=== PATIENT | female | born 1980 | race Asian ===

== ENCOUNTER 2019-01-16 13:46 | Outpatient (CLI) | payer OTHER ==
[2019-01-16 14:13] LABS: PLATELET COUNT 343 K/uL (152-353)
[2019-01-16 14:36] LABS: POTASSIUM 4.4 mmol/L (3.6-5.2)
== END 2019-01-16 20:13 | disposition home or self-care (01) ==
LOC: LAB 13:46
PROVIDERS: Family Medicine
DX: I10 Essential (primary) hypertension (principal)
CPT/HCPCS: 80053; 80061; 84439; 84443; 84481; 85027